=== PATIENT | female | born 1960 | race Caucasian/White ===

== ENCOUNTER 2018-02-17 07:48 | Inpatient (IN) | payer BC ==
[2018-02-17] MEDS ORDERED: EPHEDrine SULFATE 50 MG/5 ML SYG (10:33)
[2018-02-17] MEDS ORDERED: PROPOFOL 20 ML (10:33)
[2018-02-17] MEDS ORDERED: FENTAnyl 50 MCG/ML VIAL (10:33)
[2018-02-17] MEDS ORDERED: SUCCINYLCHOLINE CHLORIDE 100 MG/5 ML SYG IV (10:33)
[2018-02-17] MEDS ORDERED: ROCURONIUM 50 MG INJ (10:33)
[2018-02-17] MEDS ORDERED: ONDANSETRON 4 MG INJ (10:34)
[2018-02-17] MEDS ORDERED: MIDAZOLAM 1 MG/ML 2 ML INJ ×2 (10:34→12:03)
[2018-02-17] MEDS ORDERED: BUPIVACAINE 0.75%/DEXT (SPINAL) 2 ML INJ (10:34)
[2018-02-17] MEDS ORDERED: METOCLOPRAMIDE 10 MG INJ (10:34)
[2018-02-17] MEDS: CEFAZOLIN 2 GM/50 ML (PMX) 50 ML (FOR WT < 120 KG) IVPB (11:25)
[2018-02-17] MEDS ORDERED: CEFAZOLIN 1 GM INJ (11:27)
[2018-02-17] MEDS: TRANEXAMIC ACID 1,000 MG in D5W 100 ML AT INCISION X1 IVPB (11:44)
[2018-02-17] MEDS: POLYMYXIN B 500000 UNIT INJ (11:54)
[2018-02-17] MEDS: BACITRACIN 50000 UNITS INJ IRR (11:54)
[2018-02-17] MEDS ORDERED: NA PHOSPHATE/BIPHOS 133 ML ENEMA PR (12:00)
[2018-02-17] MEDS ORDERED: BISACODYL 10 MG SUPP PR (12:00)
[2018-02-17] MEDS ORDERED: MAGNESIUM HYDROXIDE 30ML CUP PO (12:00)
[2018-02-17] MEDS ORDERED: NALOXONE (0.4 MG/ML) INJ IV (12:00)
[2018-02-17] MEDS ORDERED: BETHANECHOL 25 MG TAB PO (12:00)
[2018-02-17] MEDS ORDERED: oxyCODONE 5 MG TAB PO (12:00)
[2018-02-17] MEDS ORDERED: DIPHENHYDRAMINE 50 MG INJ IV ×2 (12:00→13:30)
[2018-02-17] MEDS ORDERED: SENNA/DOCUSATE NA (8.6MG/50MG) TAB PO (12:00)
[2018-02-17] MEDS ORDERED: GLYCOPYRROLATE 0.4 MG INJ (12:05)
[2018-02-17] MEDS ORDERED: PHENYLephrine (100 MCG/ML) 5ML SYG (12:07)
[2018-02-17] MEDS: TRANEXAMIC ACID 1,000 MG in D5W 100 ML AT CLOSURE X1 IVPB (12:30)
[2018-02-17] MEDS: ONDANSETRON 4 MG INJ IV ×2 (13:28→17:50)
[2018-02-17] MEDS: DOCUSATE SODIUM 100 MG CAP PO (13:29)
[2018-02-17] MEDS ORDERED: LEVALBUTEROL (NEB) 0.63 MG/3 ML AMP HHN (13:30)
[2018-02-17] MEDS ORDERED: TRIMETHOBENZAMIDE 100 MG/ML VIAL IM (13:30)
[2018-02-17] MEDS ORDERED: PROCHLORPERAZINE 10 MG INJ IV (13:30)
[2018-02-17] MEDS ORDERED: MEPERIDINE 25 MG INJ IV (13:30)
[2018-02-17] MEDS ORDERED: LABETALOL HCL 20MG INJ IV (13:30)
[2018-02-17] MEDS ORDERED: morphine (1 MG/ML) 10ML SYRINGE IV (13:30)
[2018-02-17] MEDS ORDERED: OXYCODONE/ACETAMINOPHEN (5/325) TAB PO ×2 (13:30)
[2018-02-17] MEDS ORDERED: hydrALAzine 20 MG INJ IV (13:30)
[2018-02-17] MEDS ORDERED: ONDANSETRON 4 MG INJ IV (13:30)
[2018-02-17] MEDS: FENTAnyl 50 MCG/ML VIAL IV (13:32)
[2018-02-17] MEDS: CEFAZOLIN 1 GM/50 ML (PMX) 50 ML IVPB ×2 (13:33→20:49)
[2018-02-17] MEDS: SOD CHLORIDE 0.9% 1,000 ML IV (13:36)
[2018-02-17] MEDS ORDERED: ALBUTEROL 0.083% (NEB) 2.5 MG/3 ML AMP HHN (14:00)
[2018-02-17] MEDS: METOCLOPRAMIDE 10 MG INJ IV (14:09)
[2018-02-17] MEDS ORDERED: GLUCOSE GEL 15 GRAM TUBE BUCCAL (14:30)
[2018-02-17] MEDS ORDERED: GLUCAGON 1 MG INJ IM (14:30)
[2018-02-17] MEDS ORDERED: GLUCOSE GEL 15 GRAM TUBE PO ×2 (14:30)
[2018-02-17] MEDS ORDERED: DEXTROSE 50% 50 ML SYRINGE IV ×2 (14:30)
[2018-02-17] MEDS: HYDROmorphONE 1 MG/5 ML IV SYRINGE IV (14:35)
[2018-02-17] MEDS: KETOROLAC 15 MG INJ IV ×2 (15:43→22:06)
[2018-02-17] MEDS: metFORMIN 500 MG TAB PO (17:51)
[2018-02-17] MEDS: ATORVASTATIN 20 MG TAB PO (20:45)
[2018-02-17] MEDS: GABAPENTIN 100 MG CAP PO (20:45)
[2018-02-17] MEDS: CELECOXIB 100 MG CAP PO (20:49)
[2018-02-17] MEDS ORDERED: GLUCOSAMINE PO (21:00)
[2018-02-17] MEDS ORDERED: BOSWELLIA SERRA PO (21:00)
[2018-02-17] MEDS ORDERED: D3 PO (21:00)
[2018-02-17] MEDS ORDERED: [UNRECOGNIZED DRUG - OTHER] PO (21:00)
[2018-02-18] MEDS: SOD CHLORIDE 0.9% 1,000 ML IV ×3 (00:21→12:35)
[2018-02-18] MEDS: ONDANSETRON 4 MG INJ IV ×2 (00:30→06:38)
[2018-02-18] MEDS: KETOROLAC 15 MG INJ IV ×2 (04:36→09:42)
[2018-02-18] MEDS: CEFAZOLIN 1 GM/50 ML (PMX) 50 ML IVPB (04:36)
[2018-02-18 05:54] LABS: ADD MAN DIFF? NO
[2018-02-18 05:56] LABS: BASOPHILS % 0.5 % (0.0-2.0); EOSINOPHILS # 0.1 10^3/ul (0.0-0.5); HEMATOCRIT 30.3 % (37.0-47.0); HEMOGLOBIN 10.2 g/dl (12.0-16.0); LYMPHOCYTES # 1.4 10^3/ul (0.8-2.9); LYMPHOCYTES % 17.1 % (15.0-51.0); MEAN CORPUSCULAR HEMOGLOBIN 29.6 pg (29.0-33.0); MEAN CORPUSCULAR HGB CONC 33.7 g/dl (32.0-37.0); MEAN CORPUSCULAR VOLUME 87.8 fl (82.0-101.0); MEAN PLATELET VOLUME 12.4 fl (7.4-10.4); MONOCYTE # 0.5 10^3/ul (0.3-0.9); MONOCYTES % 5.9 % (0.0-11.0); NEUTROPHILS % 75.2 % (39.0-77.0); PLATELET COUNT 159 10^3/UL (140-415); RED BLOOD COUNT 3.45 10^6/ul (4.20-5.40); RED CELL DISTRIBUTION WIDTH 13.1 % (11.5-14.5)
[2018-02-18 06:31] LABS: ANION GAP 12 (8-16); BLOOD UREA NITROGEN 16 mg/dl (7-20); CARBON DIOXIDE 24 mmol/L (21-31); CHLORIDE 107 mmol/L (97-110); CREATININE 0.88 mg/dl (0.44-1.00); GLUCOSE 134 mg/dl (70-220); POTASSIUM 3.9 mmol/L (3.5-5.1); SODIUM 139 mmol/L (135-144)
[2018-02-18] MEDS ORDERED: BIOTIN 5000 MCG SL (09:00)
[2018-02-18] MEDS: FISH OIL 1,000 MG CAP PO (09:38)
[2018-02-18] MEDS: FERROUS FUMARATE (SR) TAB PO (09:39)
[2018-02-18] MEDS: MEDROXYPROGESTERONE 2.5 MG TAB PO (09:39)
[2018-02-18] MEDS: DOCUSATE SODIUM 100 MG CAP PO (09:39)
[2018-02-18] MEDS: BUPROPION 75 MG TAB PO (09:39)
[2018-02-18] MEDS: CALCIUM/VITAMIN D (500/200) TAB PO (09:39)
[2018-02-18] MEDS: GABAPENTIN 100 MG CAP PO (09:39)
[2018-02-18] MEDS: RIVAROXABAN 10 MG TABLET PO (09:39)
[2018-02-18] MEDS: CELECOXIB 100 MG CAP PO (09:39)
[2018-02-18] MEDS: LISINOPRIL 5 MG TAB PO (09:40)
[2018-02-18] MEDS: MULTIVITAMINS/MINERALS TAB PO (09:40)
[2018-02-18] MEDS: ESTRADIOL 1 MG TAB PO (09:40)
[2018-02-18] MEDS: FERROUS SULFATE (EC) 325 MG TAB PO (09:41)
[2018-02-18] MEDS: metFORMIN 500 MG TAB PO (09:48)
[2018-02-18] MEDS: oxyCODONE 5 MG TAB PO ×2 (11:21→13:49)
[2018-02-19] MEDS ORDERED: PANTOPRAZOLE (EC) 40 MG TAB PO (06:00)
== END 2018-02-18 15:49 | disposition home health service (06) | DRG 470 ==
LOC: REC 07:48 → MS1 15:00
PROVIDERS: Orthopaedic Surgery
PROC: 0SRC0J9 Replacement of Right Knee Joint with Synthetic Substitute, Cemented, Open Approach (ICD-10-PCS; principal; 2018-02-17 10:00)
DX: M17.11 Unilateral primary osteoarthritis, right knee (principal); E11.9 Type 2 diabetes mellitus without complications; J45.909 Unspecified asthma, uncomplicated; I10 Essential (primary) hypertension; E78.5 Hyperlipidemia, unspecified; F32.9 Major depressive disorder, single episode, unspecified
CPT/HCPCS: 73560; 80048; 82962; 85025; 86850; 86900; 86901; 87081; 88304; 88311; 97110; 97116; 97162; 97165